=== PATIENT | female | born 1965 | race African-American/Black ===

== ENCOUNTER 2017-10-18 18:07 | Emergency (ER) | payer OTHER ==
[~2017-10-18] VITALS: Ht 188 cm; Wt 93.0 kg
--- NOTE | 2017-10-18 20:10 | NUR ---
PATIENT WALKED INTO ER C/O BILATERAL KNEE PAIN FOR SEVERAL WEEKS. DENIES TRAUMA TO AREA
[2017-10-18] MEDS ORDERED: IBUPROFEN 800 MG TABLET PO ONE (21:45)
[2017-10-18] MEDS ORDERED: IBUPROFEN 800 MG TABLET ONE (22:02)
--- NOTE | 2017-10-18 22:34 | NUR ---
Patient given written and verbal discharge instructions. Patient verbalizes understanding of instructions. Patient is ambulatory with steady gait. Refuses offer of custodial placement. Patient given list of available shelters in surrounding area.
[2017-10-18 22:35] VITALS: BP 125/80
--- NOTE | 2017-10-19 16:44 | NUR ---
Patient came to the ED waiting room this morning, and asked to speak with DMITRIY. SW met with patient, who stated that she wanted information on homeless shelters in [place]. SW provided patient with the list of available [place] [facility] in [facility], and assisted patient in identifying the shelters on the list that were serving the [facility] and [place]. Patient then stated that she has changed her mind and refused the resources for the shelters. Patient stated "I'll just return to my family" and left the ED waiting room.
== END 2017-10-18 22:35 | disposition home or self-care (01) ==
LOC: ER 18:09
DX: M17.0 Bilateral primary osteoarthritis of knee (principal); Z59.0 Homelessness; M85.80 Other specified disorders of bone density and structure, unspecified site
CPT/HCPCS: A4663